=== PATIENT | female | born 1995 | race Caucasian/White ===

== ENCOUNTER 2018-10-06 13:22 | Outpatient (CLI) | payer BC, OTHER ==
--- NOTE | 2018-10-06 14:28 | RAD ---
CHEST TWO VIEWS: HISTORY: Pneumothorax. TECHNIQUE: PA and lateral views of the chest are obtained. FINDINGS: Two views of the chest demonstrate a left-sided Pneumocath in place. No evidence of pneumothorax is seen. The right lung is well aerated. IMPRESSION: Left-sided Pneumocath in place with no evidence of left-sided pneumothorax seen. POS: [facility]
== END 2018-10-06 13:23 | disposition home or self-care (01) ==
LOC: RAD 13:22
PROVIDERS: ATTEND Thoracic Surgery (Cardiothoracic Vascular Surgery)
DX: J93.9 Pneumothorax, unspecified (principal)
CPT/HCPCS: 71046